=== PATIENT | male | born 1965 | race Hispanic/Latino ===

== ENCOUNTER 2017-11-12 18:51 | Emergency (ER) | payer SELFPAY ==
[2017-11-12 19:11] VITALS: BMI 25.0
--- NOTE | 2017-11-12 19:17 | ED PDOC ---
Arrival/HPI - General Time Seen by Provider: 11/12/17 19:13 Historian: Patient - History of Present Illness Narrative History of Present Illness (Text): 11/12/17 19:14 52 y/o male, nkda, c/o here for the alcohol level test. Pt. stated that he wants to have his blood alcohol level check, stated that he didn't drink anything, no alcohol or drug abuse, no palpitation, no chest pain or shortness of breath, no numbness or tingling, no homicidal or suicidal ideation, no other medical or psychological complaints. Past Medical History - Provider Review Nursing Documentation Reviewed: Yes Family/Social History - Physician Review Nursing Documentation Reviewed: Yes Family/Social History: Unknown Family HX Allergies/Home Meds Allergies/Adverse Reactions: Allergies No Known Allergies Allergy (Verified 11/12/17 19:11) Home Medications: Home Meds Medication Instructions Recorded Confirmed No Known Home Med 11/12/17 11/12/17 Review of Systems - Review of Systems Constitutional: absent: Fatigue, Fevers Eyes: absent: Vision Changes ENT: absent: Hearing Changes Respiratory: absent: SOB, Cough Cardiovascular: absent: Chest Pain Gastrointestinal: absent: Abdominal Pain, Nausea, Vomiting Musculoskeletal: absent: Arthralgias, Back Pain Neurological: absent: Headache Psychiatric: absent: Anxiety, Depression Physical Exam Vital Signs Temp Pulse Resp BP Pulse Ox 11/12/17 20:08 98.9 F 82 18 156/96 H 98 - Systems Exam Head: Present: Atraumatic, Normocephalic Pupils: Present: PERRL Extroacular Muscles: Present: EOMI Conjunctiva: Present: Normal Mouth: Present: Moist Mucous Membranes Neck: Present: Normal Range of Motion Respiratory/Chest: Present: Clear to Auscultation, Good Air Exchange. No: Respiratory Distress, Accessory Muscle Use Cardiovascular: Present: Regular Rate and Rhythm, Normal S1, S2. No: Murmurs Abdomen: Present: Normal Bowel Sounds. No: Tenderness, Distention, Peritoneal Signs, Rebound, Guarding Back: Present: Normal Inspection Upper Extremity: Present: Normal Inspection. No: Cyanosis, Edema Lower Extremity: Present: Normal Inspection. No: Edema Neurological: Present: GCS=15, Speech Normal, Motor Func Grossly Intact, Gait Normal, Memory Normal Skin: Present: Warm, Dry, Normal Color. No: Rashes Psychiatric: Present: Alert, Oriented x 3, Normal Insight, Normal Concentration Medical Decision Making ED Course and Treatment: 11/12/17 19:16 -alcohol level -observe and reassess 11/12/17 20:23 -Alcohol level is non-detected. -Your alcohol level is non-detected, please follow up with your own pmd within 2 days, return to the ER for any new or worsening signs or symptoms. - Lab Interpretations Lab Results: Lab Results 11/12/17 19:45: Alcohol, Quantitative < 10 I have reviewed the lab results: Yes - PA / INSTITUTIONAL ASSET MANAGER / Resident Statement MD/DO has reviewed & agrees with the documentation as recorded. Disposition/Present on Arrival - Present on Arrival Any Indicators Present on Arrival: No History of DVT/PE: No History of Uncontrolled Diabetes: No Urinary Catheter: No History of Decub. Ulcer: No - Disposition Have Diagnosis and Disposition been Completed?: Yes Diagnosis: General medical exam Disposition: HOME/ ROUTINE Disposition Time: 19:17 Patient Plan: Discharge Condition: GOOD Additional Instructions: -Your alcohol level is non-detected, please follow up with your own pmd within 2 days, return to the ER for any new or worsening signs or symptoms. Referrals: Nemo Robertson, [Primary Care Provider] - Follow up with primary [facility] – [place], [place] [Outside] - Follow up with primary
[2017-11-12 20:09] VITALS: BP 156/96; PULSE 82; RESP 18; TEMP 98.9; O2SAT 98
== END 2017-11-12 20:29 | disposition home or self-care (01) ==
LOC: ED 18:51
DX: Z00.00 Encounter for general adult medical examination without abnormal findings (principal)
CPT/HCPCS: 99282; G0480